=== PATIENT | female | born 1995 | race Two or more races ===

== ENCOUNTER 2023-08-22 09:28 | Emergency (ER) | payer OTHER ==
[~2023-08-22] VITALS: Ht 149.9 cm; Wt 52.6 kg
== END 2023-08-22 10:49 | disposition home or self-care (01) ==
LOC: ER 09:28
DX: J03.80 Acute tonsillitis due to other specified organisms (principal); B96.89 Other specified bacterial agents as the cause of diseases classified elsewhere

== ENCOUNTER 2024-04-10 15:41 | Emergency (ER) | payer OTHER ==
[~2024-04-10] VITALS: Ht 152.4 cm; Wt 58.1 kg
[2024-04-10] MEDS ORDERED: DIPHENHYDRAMINE HCL 50 MG/ML VIAL 1ML IV ONE (16:45)
[2024-04-10] MEDS ORDERED: METHYLPREDNISOLONE SOD SUCC 125 MG VIAL IV ONE (16:45)
== END 2024-04-10 17:32 | disposition home or self-care (01) ==
LOC: ER 15:43
DX: R21 Rash and other nonspecific skin eruption (principal); T78.40XA Allergy, unspecified, initial encounter